=== PATIENT | female | born 1960 | race Two or more races ===

== ENCOUNTER 2019-05-29 10:06 | Outpatient (CLI) | payer MEDICARE, MEDICAID ==
[~2019-05-29] VITALS: Ht 165.1 cm; Wt 153.8 kg
[2019-05-29] MEDS ORDERED: DICLOFENAC SODI75 MG ORAL (12:04)
[2019-05-29] MEDS ORDERED: NORCO 10-325 T1 EACH ORAL (12:04)
[2019-05-29] MEDS ORDERED: UNOBMED (12:04)
[2019-05-29] MEDS ORDERED: INSULIN (12:04)
[2019-05-29 12:05] VITALS: BP 141/78
--- NOTE | 2019-05-29 15:45 | Consultation ---
DATE OF CONSULTATION: 05/29/2019 CONSULTING PHYSICIAN: Ravi Hill M.D. REFERRING PHYSICIAN: Ananda Magana M.D. CHIEF COMPLAINT: Referral for rectal bleeding. HISTORY OF PRESENT ILLNESS: The patient is a very pleasant 58-year-old morbidly obese female, who has history of rectal bleeding. She said sometimes when she goes to the bathroom she gets a lot of blood, sometimes not. She has also complained of some constipation. She takes a lot of medications for constipation. She states none of them works very well. She apparently had a colonoscopy many years ago, she does not exactly know what the findings were. PAST MEDICAL HISTORY: 1. History of rheumatoid arthritis. 2. Sciatica. 3. Hypercholesterolemia. 4. Hypertension. 5. Diabetes. 6. GERD. 7. Sleep apnea. 8. Morbid obesity. PAST SURGICAL HISTORY: Foot surgery. MEDICATIONS: See medication reconciliation list. FAMILY HISTORY: No family history of GI malignancies. SOCIAL HISTORY: The patient denies any tobacco, alcohol, or drug abuse. ALLERGIES: No known allergies. REVIEW OF SYSTEMS: Positive for abdominal pain, constipation, acid reflux, and rectal bleeding. PHYSICAL EXAMINATION: VITAL SIGNS: Temperature 98.2, blood pressure 141/78, pulse 71, and respirations 20. Height is 5 feet 5 inches. Weight is 339. HEENT: Normocephalic and atraumatic. Sclerae anicteric. NECK: Supple. No evidence of obvious lymphadenopathy. CARDIOVASCULAR: Regular rate and rhythm. Plus S1 and S2. No obvious murmur. LUNGS: Clear to auscultation bilaterally. ABDOMEN: Positive bowel sounds. Soft and nontender. No rebound. No guarding. No peritoneal sign. EXTREMITIES: No cyanosis, no clubbing, no edema. ASSESSMENT AND PLAN: The patient is a 58-year-old female with rectal bleeding, needs colonoscopy. The patient was given information for colonoscopy. The risks and benefits of procedure was explained to her and she agreed. She was given stool prep with Dulcolax. The patient also complained of chronic GERD. The patient was given prescription for omeprazole 40 mg p.o. daily. The patient also complained of chronic constipation. The patient was given prescription for Linzess 145 mcg. I want to thank Dr. Ananda Magana for this kind referral. Raviashanti Hill M.D. DR: RUSSELL JOB#: [id number] CC: Ananda Magana M.D.
== END 2019-05-29 12:00 | disposition home or self-care (01) ==
LOC: PAN 10:06
DX: K62.5 Hemorrhage of anus and rectum (principal); K59.00 Constipation, unspecified; M06.9 Rheumatoid arthritis, unspecified; E78.00 Pure hypercholesterolemia, unspecified; I10 Essential (primary) hypertension; E11.9 Type 2 diabetes mellitus without complications; K21.9 Gastro-esophageal reflux disease without esophagitis; G47.30 Sleep apnea, unspecified; E66.01 Morbid (severe) obesity due to excess calories; Z68.43 Body mass index [BMI] 50.0-59.9, adult
CPT/HCPCS: G0463

== ENCOUNTER 2019-06-04 09:21 | Day surgery (SDC) | payer MEDICARE, MEDICAID ==
[~2019-06-04] VITALS: Ht 165.1 cm; Wt 154.2 kg
[2019-06-04] VITALS (8 sets, daily range): BP systolic 97–148; BP diastolic 50–79
[~2019-06-04 09:21] MED LIST: DICLOFENAC SODI75 MG ORAL; INSULIN; LR 1000ml 1,000 ML IVLG SCH; NORCO 10-325 T1 EACH ORAL; UNOBMED
--- NOTE | 2019-06-04 10:29 | Short Stay Surgery H&P ---
History of Present Illness History of Present Illness Chief Complaint see recent office note HPI Autumn Rangel is a 58 year old female who was admitted on for Screening Patient History Allergies: Coded Allergies: No Known Allergies (Unverified , 05/29/19) Medication History Scheduled Diclofenac Sod* (Voltaren*), Unknown Dose ORAL THREE TIMES A DAY, (Reported) Scheduled PRN Hydrocodone Bit/Acetaminophen 10-325* ([place] 10-325*), 1 TAB ORAL Q6H PRN for For Pain, (Reported) Miscellaneous Medications Unable to Obtain Medications (Unable To Obtain Meds), (Reported) [Insulin ], (Reported) Physical Exam Vital Signs Last Vital Signs Date Time Temp Pulse Resp B/P (MAP) Pulse Ox O2 Delivery O2 Flow Rate FiO2 06/04/19 10:24 Room Air 06/04/19 10:09 97.6 70 20 129/63 96 Plan Attestation Are the patient's medical conditions optimized for surgery? Ravi Hill MD Jun 04, 2019 10:29
--- NOTE | 2019-06-04 10:29 | Pre-Procedure Note/Attestation ---
Pre-Procedure Note/Attestation Complete Prior to Procedure Planned Procedure: not applicable Procedure Narrative: colonoscopy Indications for Procedure Pre-Operative Diagnosis: screening Attestation I attest that I discussed the nature of the procedure; its benefits; risks and complications; and alternatives (and the risks and benefits of such alternatives ), prior to the procedure, with the patient (or the patient's legal personnel representative). I attest that, if there was a reasonable possibility of needing a blood transfusion, the patient (or the patient's legal personnel representative) was given the [facility] standardized written summary, pursuant to the [place] Blood Safety Act ([place] Health and Safety Code # 1645, as amended). I attest that I re-evaluated the patient just prior to the surgery and that there has been no change in the patient's H&P, except as documented below: Ravi Hill MD Jun 04, 2019 10:29
[2019-06-04] MEDS ORDERED: Propofol 200mg/20ml IV ONE (10:30)
[2019-06-04] MEDS ORDERED: LR 1000ml ONE (10:30)
[2019-06-04] MEDS ORDERED: Lidocaine 1% MPF 10mg/ml 5ml ONE (10:30)
--- NOTE | 2019-06-04 11:19 | Endoscopy Procedure Note ---
Endoscopy Procedure Note General Indication for Procedure: screening Procedures Performed: colonoscopy Operative Findings/Diagnosis: 2 polyps Specimen: yes Pt Tolerated Procedure Well: Yes Estimated Blood Loss: none Anesthesia Anesthesiologist: alize Anesthesia: MAC Inserted Devices Implant(s) used?: No Quality Quality of Bowel Preparation: Good Did scope reach the cecum?: Yes Was there any complications?: No GI Core Measures 50 yrs or older w/o bx or poly: No 10yrs. F/U recommended: Yes If not recommended, why?: Above average risk 18 years or older w/prev. colo: Yes <3yrs. since last colonoscopy: No Ravi Hill MD Jun 04, 2019 11:19
--- NOTE | 2019-06-04 12:34 | Immediate Post-Op Evaluation ---
Immediate Post-Op Evalulation Immediate Post-Op Evalulation Procedure: Colonoscopy Date of Evaluation: Jun 04, 2019 Time of Evaluation: 11:20 IV Fluids: 500 Blood Pressure Systolic: 97 Blood Pressure Diastolic: 50 Pulse Rate: 70 Respiratory Rate: 14 O2 Sat by Pulse Oximetry: 98 Nausea: No Vomiting: No Complications none Patient Status: awake, reacts, patent Hydration Status: adequate Drug: none Gail Alcala CRNA Jun 04, 2019 12:34
--- NOTE | 2019-06-04 12:36 | Anethesia Preoperative Eval ---
Anesthesia Pre-op PMH/ROS General Date of Evaluation: Jun 04, 2019 Time of Evaluation: 10:20 Anesthesiologist: Fredrick ASA Score: ASA 3 Mallampati Score Class I : Soft palate, uvula, fauces, pillars visible Class II: Soft palate, uvula, fauces visible Class III: Soft palate, base of uvula visible Class IV: Only hard plate visible Mallampati Classification: Class III Surgeon: Sergio Diagnosis: Screening Surgical Procedure: EGD Anesthesia History: none Family History: no anesthesia problems Allergies: Coded Allergies: No Known Allergies (Unverified , 05/29/19) Medications: see eMAR Patient NPO?: Yes NPO Date: Jun 04, 2019 NPO Time: 00:01 Past Medical History Cardiovascular: Reports: HTN, CAD Pulmonary: Reports: asthma, SHAUNA; Denies: COPD, other Gastrointestinal/Genitourinary: Reports: GERD; Denies: CRI, ESRD, other Neurologic/Psychiatric: Denies: dementia, CVA, depression/anxiety, TIA, other Endocrine: Reports: DM; Denies: hypothyroidism, steroids, other HEENT: Denies: cataract (L), cataract (R), glaucoma, [place] (L), [place] (R), other Hematology/Immune: Denies: anemia, DVT, bleeding disorder, other Other: obesity PSxH Narrative: see H&P Anesthesia Pre-op Phys. Exam Physician Exam Last Vital Signs Date Time Temp Pulse Resp B/P (MAP) Pulse Ox O2 Delivery O2 Flow Rate FiO2 06/04/19 11:35 97.4 69 18 97/71 99 Room Air 06/04/19 11:25 3 Constitutional: NAD Neurologic: CN 2-12 intact Cardiovascular: RRR Respiratory: CTA Gastrointestinal: S/NT/ND Airway Exam Mallampati Classification 3 Mallampati Score: Class III MO: limited Neck: thick TMD: 1fb ROM: limited Dentures: no upper, no lower Anesthesia Pre-op A/P Studies Pre-op Studies: EKG - SR Risk Assessment & Plan Plan: MAC Pre-Antibiotics Drug: none Gail Alcala CRNA Jun 04, 2019 12:36
--- NOTE | 2019-06-04 13:15 | 48 Hour Post Anesthesia Eval ---
Post Anesthesia Evaluation Procedure: Colonoscopy Date of Evaluation: Jun 04, 2019 Time of Evaluation: 13:14 Blood Pressure Systolic: 97 0: 50 Pulse Rate: 70 Respiratory Rate: 14 O2 Sat by Pulse Oximetry: 98 Airway: patent Nausea: No Vomiting: No Hydration Status: adequate Cardiopulmonary Status: stable Mental Status/LOC: patient returned to baseline Follow-up Care/Observations: na Post-Anesthesia Complications: none Follow-up care needed: N/A Gail Alclaa CRNA Jun 04, 2019 13:15
--- NOTE | 2019-06-04 15:15 | Procedure Note ---
DATE OF PROCEDURE: 06/04/2019 SURGEON: Ravi Hill M.D. REFERRING PHYSICIAN: Ananda Magana M.D. PROCEDURE: Colonoscopy with biopsy. ANESTHESIA: Per LINE PAINTING MACHINE OPERATOR, Gail. INSTRUMENT: Olympus adult flexible colonoscope. INDICATIONS: Screening colonoscopy. REASON FOR PROCEDURE: The procedure, risks, benefits, and possible consequences, including hemorrhage, aspiration, perforation and infection, and alternative treatments, were explained to the patient/legal guardian by Dr. Ravi Hill and the patient/legal guardian understood and accepted these risks. PROCEDURE IN DETAIL: After informed consent was obtained and the patient was adequately sedated, first rectal exam was performed, which was positive for internal and external hemorrhoids. Then, the scope was advanced from the rectum into the cecum documented by appendix orifice, ileocecal valve, and right upper quadrant palpation. Quality of prep was good. The patient had one polyp in the rectosigmoid area, measured roughly about 5 mm, removed with multiple biopsy forceps technique. There was another polyp next to it. That was a diminutive, removed with the cold biopsy forceps technique. The rest of the exam was within normal limits. Proximal to this polyp, there was a tattooed area but there was no polyp there. Possibly prior polypectomy site. Retroflexion of rectum was performed shows evidence of large internal hemorrhoid. SUMMARY OF FINDINGS: 1. Two colonic polyp removed, see above for details. 2. Internal hemorrhoids. RECOMMENDATIONS: 1. Follow path. 2. Repeat colonoscopy in 5 years. I want to thank Dr. Ananda Magana for this kind referral. Ravi Hill M.D. DR: RUSSELL JOB#: [id number] CC: Ananda Magana M.D.
== END 2019-06-04 12:25 | disposition home or self-care (01) ==
LOC: GAS 09:21
DX: Z12.11 Encounter for screening for malignant neoplasm of colon (principal); K63.5 Polyp of colon; K64.8 Other hemorrhoids; I11.9 Hypertensive heart disease without heart failure; K21.9 Gastro-esophageal reflux disease without esophagitis; G47.33 Obstructive sleep apnea (adult) (pediatric); E11.9 Type 2 diabetes mellitus without complications; E66.9 Obesity, unspecified; Z68.43 Body mass index [BMI] 50.0-59.9, adult
CPT/HCPCS: 45380; J2704; J7120; 94003; 94150

== ENCOUNTER → 2020-02-04 | Outpatient (CLI) | payer MEDICARE, MEDICAID ==
[~2020-02-04] MED LIST changes: +LINZESS 72 MCG PO; -LR 1000ml 1,000 ML IVLG SCH
--- NOTE | 2020-02-04 12:16 | Diagnostic Imaging Report ---
Indication: Abdominal pain Technique: Limited views of the upper abdomen; exam limited largely due to patient body habitus obscuring much of the upper abdominal structures Comparison: none Findings: The right kidney measures 9.6 cm in length. It demonstrates normal echogenicity and no hydronephrosis. The gallbladder is grossly unremarkable except for small amount of sludge. No definite gallstones. No gallbladder wall thickening. Common bile duct measures 3 mm in diameter. The liver is poorly visualized, demonstrate increased echogenicity, consistent with hepatocellular disease, most likely fatty change. Spleen, left kidney, abdominal aorta, pancreas, and the left hepatic lobe are not demonstrated Impression: Very limited exam, demonstrating gallbladder sludge, but no definite stones or dilated bile ducts Liver demonstrates diffusely increased echogenicity, consistent with diffuse hepatocellular disease, most likely fatty change.
== END | disposition home or self-care (01) ==
LOC: ULS 09:38
DX: R10.9 Unspecified abdominal pain (principal)
CPT/HCPCS: 76705

== ENCOUNTER → 2020-02-05 | Outpatient (CLI) | payer MEDICARE, MEDICAID ==
--- NOTE | 2020-02-05 11:20 | General Progress Note ---
Assessment/Plan Assessment/Plan: Assessment/Plan Assessment/Plan: chronic constipation colon poly last colon 05/2019 obesity DM hemorrhoids fatty liver elevated LFTS GB sludge xifaxan abd us>> reviewed MRI/MRCP ordered labs reviewed RTC one week Subjective ROS Limited/Unobtainable: Yes Allergies: Coded Allergies: No Known Allergies (Unverified , 05/29/19) Subjective abd pain right sided worse with eating Objective General Appearance: alert EENT: normal ENT inspection Neck: supple Cardiovascular: normal rate Respiratory/Chest: decreased breath sounds Abdomen: normal bowel sounds, non tender, soft Extremities: non-tender Ravi Hill MD Feb 05, 2020 11:20
== END | disposition home or self-care (01) ==
LOC: PAN 11:06
DX: K59.09 Other constipation (principal); Z86.010 Personal history of colon polyps; E66.9 Obesity, unspecified; E11.9 Type 2 diabetes mellitus without complications; K64.9 Unspecified hemorrhoids; K76.0 Fatty (change of) liver, not elsewhere classified; R94.5 Abnormal results of liver function studies; R10.9 Unspecified abdominal pain

== ENCOUNTER 2020-02-12 09:15 | Outpatient (CLI) | payer MEDICARE, MEDICAID ==
--- NOTE | 2020-02-12 13:36 | General Progress Note ---
Assessment/Plan Assessment/Plan: Assessment/Plan Assessment/Plan: chronic constipation colon poly last colon 05/2019 obesity DM hemorrhoids fatty liver elevated LFTS GB sludge xifaxan abd us>> reviewed MRI/MRCP >>> reviewed labs reviewed Trial of reglan TID and Linzess 290 RTC one month Subjective ROS Limited/Unobtainable: Yes Allergies: Coded Allergies: No Known Allergies (Unverified , 05/29/19) Objective General Appearance: alert EENT: normal ENT inspection Neck: normal alignment Cardiovascular: normal rate Respiratory/Chest: lungs clear Abdomen: normal bowel sounds, non tender, soft Extremities: non-tender Ravi Hill MD Feb 12, 2020 13:36
== END 2020-02-12 11:15 | disposition home or self-care (01) ==
LOC: PAN 09:15
DX: K59.09 Other constipation (principal); Z86.010 Personal history of colon polyps; E66.9 Obesity, unspecified; K64.9 Unspecified hemorrhoids; K76.0 Fatty (change of) liver, not elsewhere classified; R79.89 Other specified abnormal findings of blood chemistry
CPT/HCPCS: 99212